=== PATIENT | female | born 1955 | race Caucasian/White ===

== ENCOUNTER 2019-06-04 15:57 | Emergency (ER) | payer BC, OTHER ==
[~2019-06-04] VITALS: Ht 162 cm; Wt 73.6 kg
[2019-06-04] MEDS ORDERED: OXYMETAZOLINE (AFRIN) 0.05% NA 15 ML BTL ONE (16:04)
[2019-06-04] MEDS ORDERED: OXYMETAZOLINE (AFRIN) 0.05% NA 15 ML BTL SCH (16:30)
--- NOTE | 2019-06-04 16:38 | ED EENT ---
History of Present Illness General Chief Complaint: Nasal Problems Stated Complaint: NOSE BLEED History of Present Illness Date Seen by Provider: Jun 04, 2019 Time Seen by Provider: 15:45 Initial Comments The patient is a 63-year-old female with a history of hypertension and recurrent epistaxis, always involving the right naris and having been treated with cauterization by Dr. Cherry of ENT several times in the past. Patient presents with concern for acute onset of anterior epistaxis from a visible site to the medial right naris. Bleeding is not particularly brisk and has been going on for about one half hour. Not associated with any specific injury although the patient notes that she has had mild upper respiratory symptoms over the last 1 week. She is speaking comfortably in full sentences and is in no acute distress with appropriate vital signs upon initial evaluation in the emergency department. Allergies and Home Medications Allergies Coded Allergies: No Known Drug Allergies (Unverified , 06/04/19) Home Medications Oxymetazoline HCl 15 Ml Mist, 15 ML NS Q6H Prescribed by: KERRY GARCIA on 06/04/19 1641 Sodium Chloride 30 Ml [place], 30 ML NS Q4H Prescribed by: KERRY GARCIA on 06/04/19 1641 Patient Home Medication List Home Medication List Reviewed: Yes Review of Systems Review of Systems Constitutional: see HPI All Other Systems Reviewed Negative Unless Noted: Yes (Negative excepted noted.) Past Tkqcjbv-Nxxqnc-Jfkhsk Hx Past Med/Social Hx: Reviewed Nursing Past Med/Soc Hx Patient Social History Alcohol Use: Denies Use Recreational Drug Use: No Smoking Status: Never a Smoker 2nd Hand Smoke Exposure: No Recent Hopitalizations: No Physical Abuse: No Sexual Abuse: No Mistreated: No Fear: No Seasonal Allergies Seasonal Allergies: No Past Medical History Surgeries: Yes (carpal tunnel ) Cardiac: Yes High Cholesterol, Hypertension Neurological: No Genitourinary: No Gastrointestinal: No Musculoskeletal: No Endocrine: No HEENT: No Cancer: No Psychosocial: No Integumentary: No Family Medical History Reviewed Nursing Family Hx Physical Exam Vital Signs Vital Signs - First Documented 06/04/19 16:00 Temp 36.9 Pulse 98 Resp 18 B/P (MAP) 151/91 (111) Pulse Ox 97 Height, Weight, BMI Height: '" Weight: lbs. oz. kg; BMI Method: General Appearance: no apparent distress This is an older female appearing nontoxic and in no acute distress. Head is normocephalic and atraumatic. Neck is supple and nontender. Oropharynx is moist. Small area of visible indolent bleeding to the medial aspect of the right naris about 1.5cm in. Lungs are clear to auscultation in all stations. There is normal S1 and S2 without rubs or gallops and capillary refill is appropriate, less than 2 seconds globally. Abdomen is soft, nontender and nondistended. Skin is warm and dry without cyanosis, clubbing or edema. Psychiatrically, the patient demonstrates appropriate mood and affect and is alert. Progress/Results/Core Measures Results/Orders My Orders Orders - KERRY GARCIA MD Oxymetazoline 0.05% Nasal [place] (Afrin 0. (06/04/19 16:04) Oxymetazoline 0.05% Nasal [place] (Afrin 0. (06/04/19 16:30) Vital Signs/I&O 06/04/19 16:00 Temp 36.9 Pulse 98 Resp 18 B/P (MAP) 151/91 (111) Pulse Ox 97 Progress Progress Note : Time: 16:38 Progress Note We'll have patient blow nose to evacuate clot, instill Afrin and we will then try aggressive direct pressure to resolve acute epistaxis. We will then reevaluate. Update 1650: Bleeding stopped after 2 rounds of direct pressure after Afrin instillation. Patient is resting comfortably in no distress and feels ready to go home. We will discharge with prescription for Afrin as well as Laurium nasal spray. She is to follow-up with ENT closely in the clinic and understands that she feels worse is that of better or develops other new symptoms of concern that she should return right away for reevaluation. All questions are answered. Departure Impression Primary Impression: Acute anterior epistaxis Disposition: 01 HOME, SELF-CARE Condition: Improved Departure-Patient Inst. Referrals: [facility] [place]) Primary Care Physician NAHOMY ROBISON APRN (Family) Primary Care Physician BENNIE CHERRY MD Patient Instructions: [facility] Nosebleeds (DC) Add. Discharge Instructions: Please call for an appointment to follow-up with Dr. Cherry in 2-3 days. Blow nose to evacuate blood clot, spray Afrin in the affected nostril and apply direct pressure for 15-20 minutes to try to stop bleeding if it recurs. Return right away for worsening symptoms or other new concerns. Scripts Sodium Chloride (Saline Nasal [place]) 30 Ml [place] 30 ML NS Q4H for nasal dryness, #1 EA Prov: KERRY GARCIA MD 06/04/19 Oxymetazoline HCl (Afrin) 15 Ml Mist 15 ML NS Q6H for nosebleed, #1 EA Prov: KERRY GARCIA MD 06/04/19 KERRY GARCIA MD Jun 04, 2019 16:38 POS
[2019-06-04] MEDS ORDERED: SODI30SP2 NS (16:41)
[2019-06-04] MEDS ORDERED: OXYM15MI4 NS (16:41)
[2019-06-04 16:53] VITALS: BP 149/95
== END 2019-06-04 16:55 | disposition home or self-care (01) ==
LOC: EDUNIT# 15:57 → ER FS 15:58
DX: R04.0 Epistaxis (principal); I10 Essential (primary) hypertension; E78.00 Pure hypercholesterolemia, unspecified
CPT/HCPCS: 30901

== ENCOUNTER 2019-06-11 21:14 | Emergency (ER) | payer BC ==
[~2019-06-11] VITALS: Ht 162.5 cm; Wt 73.4 kg
[~2019-06-11 21:14] MED LIST: OXYM15MI4 NS; SODI30SP2 NS
[2019-06-11] MEDS ORDERED: OXYMETAZOLINE (AFRIN) 0.05% NA 15 ML BTL ONE (21:23)
--- NOTE | 2019-06-11 21:44 | ED EENT ---
History of Present Illness General Chief Complaint: Nasal Problems Stated Complaint: EPISTAXIS Source: patient, spouse Exam Limitations: no limitations History of Present Illness Date Seen by Provider: Jun 11, 2019 Time Seen by Provider: 21:30 Initial Comments The patient presents to ER by private conveyance with her significant other and chief complaint of a nosebleed starting at 2000 tonight, 1-1/2 hours prior to arrival. She's having no weakness shortness of breath, nausea, chest pain, history of anemia. She has been dealing with nosebleeds for the past several years and has a surgical appointment with Dr. Brumfield at [facility] in one week. She is followed with Dr. Cherry, ENT. After her surgery she is hopeful that her nosebleeds will go away. She's had to be packed once in the past and multiple times had to have cautery. She takes 81 mg aspirin every other day. She does not take any blood thinners. Allergies and Home Medications Allergies Coded Allergies: No Known Drug Allergies (Unverified , 06/04/19) Home Medications Oxymetazoline HCl 15 Ml Mist, 15 ML NS Q6H Prescribed by: KERRY GARCIA on 06/04/19 1641 Sodium Chloride 30 Ml [place], 30 ML NS Q4H Prescribed by: KERRY GARCIA on 06/04/19 1641 Patient Home Medication List Home Medication List Reviewed: Yes Review of Systems Review of Systems Constitutional: No chills, No diaphoresis Eyes: Denies Blindness, Denies Blurred Vision Ears: Denies Dizziness, Denies Pain Nose: see HPI, clots, epistaxis Mouth: denies clots, denies loose teeth Throat: denies pain, denies swelling All Other Systems Reviewed Negative Unless Noted: Yes Past Jugsowu-Umnhnm-Whcbho Hx Patient Social History Alcohol Use: Denies Use Recreational Drug Use: No Smoking Status: Never a Smoker 2nd Hand Smoke Exposure: No Recent Foreign Travel: No Recent Hopitalizations: No Seasonal Allergies Seasonal Allergies: No Past Medical History Surgeries: Yes (carpal tunnel ) Cardiac: Yes High Cholesterol, Hypertension Neurological: No Genitourinary: No Gastrointestinal: No Musculoskeletal: No Endocrine: No HEENT: No Cancer: No Psychosocial: No Integumentary: No Physical Exam Vital Signs Vital Signs - First Documented 06/11/19 21:23 Temp 36.6 Pulse 83 Resp 18 B/P (MAP) 159/79 (105) Height, Weight, BMI Height: '" Weight: lbs. oz. kg; 28.00 BMI Method: General Appearance: WD/WN, no apparent distress Eyes: bilateral eye normal inspection, bilateral eye PERRL, bilateral eye EOMI Ears: bilateral ear auricle normal, bilateral ear canal normal Nose: active bleeding (right anterior nostril), dried blood; No foreign body Mouth/Throat: normal mouth inspection, pharynx normal Cardiovascular: normal peripheral pulses, regular rate, rhythm Respiratory: no respiratory distress, no accessory muscle use Neurologic/Psychiatric: alert, normal mood/affect, oriented x 3 Progress/Results/Core Measures Results/Orders My Orders Orders - GINO OSULLIVAN Oxymetazoline 0.05% Nasal [place] (Afrin 0. (06/12/19 09:00) Oxymetazoline 0.05% Nasal [place] (Afrin 0. (06/11/19 21:23) Vital Signs/I&O 06/11/19 21:23 Temp 36.6 Pulse 83 Resp 18 B/P (MAP) 159/79 (105) Progress Progress Note #1: Time: 21:43 Progress Note Oxymetazoline 4 puffs in the right nostril. The bleeding is stopped. Plan to watch her momentarily to see if it restarts. We'll hold off cauterizing or packing at this time. Progress Note #2: Time: 22:05 Progress Note On reexamination she has moist mucosa of her nose and the bleeding has still stopped. We'll send her home with oxymetazoline and return precautions. Departure Impression Primary Impression: Epistaxis Disposition: 01 HOME, SELF-CARE Condition: Improved Departure-Patient Inst. Decision time for Depature: 22:06 Referrals: JESSA FREGOSO MD (PCP) Primary Care Physician NAHOMY ROBISON APRN (Family) Primary Care Physician Patient Instructions: Nosebleeds (DC) Add. Discharge Instructions: 4 puffs of oxymetazoline each nostril if your bleeding starts again and then apply direct pressure for 20 minutes without checking. If you cannot get the bleeding to stop please return to the ER. Keep your follow-up appointment with your surgeon. Do not place anything in your nose, blow your nose etc. Vapor rubs, humidifiers and nasal saline sprays can be helpful. All discharge instructions reviewed with patient and/or family. Voiced understanding. GINO OSULLIVAN Jun 11, 2019 21:44 POS
[2019-06-11 22:13] VITALS: BP 132/81
[2019-06-12] MEDS ORDERED: OXYMETAZOLINE (AFRIN) 0.05% NA 15 ML BTL SCH (09:00)
== END 2019-06-11 22:13 | disposition home or self-care (01) ==
LOC: EDUNIT# 21:14 → ER FS 21:15
DX: R04.0 Epistaxis (principal); I10 Essential (primary) hypertension; E78.00 Pure hypercholesterolemia, unspecified; Z79.82 Long term (current) use of aspirin
CPT/HCPCS: 99283

== ENCOUNTER → 2021-10-23 | Outpatient (CLI) | payer MEDICARE, OTHER ==
--- NOTE | 2021-10-23 08:29 | Diagnostic Imaging Report ---
PROCEDURE: CT urinary tract, rule out kidney stone. TECHNIQUE: Multiple contiguous axial images were obtained through the abdomen and pelvis without the use of intravenous contrast. Auto Exposure Controls were utilized during the CT exam to meet ALARA standards for radiation dose reduction. INDICATION: Acute left flank pain. No prior studies are available for comparison. Lung bases are clear. Liver and gallbladder are unremarkable. There is no biliary duct dilatation. Pancreas and spleen are unremarkable. No adrenal mass is identified. Right kidney contains a tiny 1 to 2 mm nonobstructing calculus in the upper pole. There is a punctate nonobstructing calculus in the mid left kidney. In addition, there is a 4 mm calculus in the distal left ureter approximately 3 cm proximal to the UVJ. No other ureteral calculi are seen. Bladder is decompressed. No bladder calculi are seen. Right ureter is unremarkable. There is some mild left hydroureteronephrosis present. The aorta is nonaneurysmal. The bowel loops are nonobstructed. There is diverticulosis of the descending and sigmoid colon but no evidence of acute diverticulitis. The uterus is unremarkable. No free fluid or fluid collection identified. IMPRESSION: 1. Bilateral nonobstructing nephrolithiasis. In addition, there is a 4 mm distal left ureteric calculus producing mild to moderate hydroureteronephrosis. 2. Uncomplicated diverticulosis. Dictated by: Dictated on workstation # [id number]
== END ==
LOC: RAD FS 07:51
PROVIDERS: ATTEND Nurse Practitioner Family
DX: N13.2 Hydronephrosis with renal and ureteral calculous obstruction (principal); K57.30 Diverticulosis of large intestine without perforation or abscess without bleeding
CPT/HCPCS: 74176